=== PATIENT | female | born 1990 | race African-American/Black ===

== ENCOUNTER → 2017-01-16 | Outpatient (REF) | payer OTHER ==
[~2017-01-16] MED LIST: ADV250INH INH; ALBU17IN2 INH; EFFE150C PO; EFFE37.527 PO; LEUP375KIT IM; METH-107 PO; TRAM50TA2 PO; TRAZ50TA4 PO; ZANA2CAP PO; ZOFR20TA PO
== END ==
LOC: M LAB REF 19:31
PROVIDERS: ATTEND Physician Assistant
DX: J02.9 Acute pharyngitis, unspecified (principal)

== ENCOUNTER 2017-06-19 17:40 | Emergency (ER) | payer OTHER ==
[~2017-06-19] VITALS: Ht 162.6 cm; Wt 72.6 kg
[~2017-06-19 17:40] MED LIST changes: -METH-107 PO; +METH1TAB40 PO; +TRAZ50TA11 PO; -TRAZ50TA4 PO
[2017-06-19] MEDS ORDERED: MORPHINE 4 MG/ML 1ML SYRINGE IV PRN (18:45)
[2017-06-19] MEDS ORDERED: NS 1,000 ML IV ONE (18:45)
[2017-06-19 19:08] LABS: BASO % 0.6 % (0.0-1.0); EOS # 0.1 K/mm3 (0.0-0.50); EOS % 2.1 % (0.0-3.0); LARGE UNSTAINED CELL # 0.1 K/mm3 (0.0-0.4); LARGE UNSTAINED CELL % 2.3 % (0.0-4.0); LYMPH # 2.9 K/mm3 (1.5-6.5); LYMPH % 50.2 % (24.0-44.0); MEAN CORPUSCULAR HEMOGLOBIN 30.1 pg (27.0-33.0); MEAN CORPUSCULAR HGB CONC 33.5 g/dl (32.0-36.5); MEAN CORPUSCULAR VOLUME 89.6 fl (80.0-96.0); MONO # 0.4 K/mm3 (0.0-0.8); MONO % 6.9 % (0.0-5.0); NEUTROPHILS # 2.1 K/mm3 (1.8-7.7); NEUTROPHILS % 37.9 % (36.0-66.0); PLATELET COUNT, AUTOMATED 278 k/mm3 (150-450); RED CELL DISTRIBUTION WIDTH 13.3 % (11.5-14.5); WHITE BLOOD COUNT 5.6 K/mm3 (4.0-10.0)
[2017-06-19 19:36] LABS: ALBUMIN/GLOBULIN RATIO 1.29 (1.00-1.93); ALKALINE PHOSPHATASE 52 U/L (45-117); ALT/SGPT 44 U/L (12-78); AMYLASE 113 U/L (25-115); ANION GAP 5 MEQ/L (8-16); AST/SGOT 24 U/L (15-37); BILIRUBIN,DIRECT < 0.1 MG/DL (0.0-0.2); BILIRUBIN,TOTAL 0.2 MG/DL (0.2-1.0); BLOOD UREA NITROGEN 13 MG/DL (7-18); CALCIUM LEVEL 8.6 MG/DL (8.5-10.1); CARBON DIOXIDE LEVEL 27 MEQ/L (21-32); CHLORIDE LEVEL 103 MEQ/L (98-107); CREATININE FOR GFR 0.88 MG/DL (0.55-1.02); GLOMERULAR FILTRATION RATE > 60.0 (>60); GLUCOSE, FASTING 101 MG/DL (70-105); POTASSIUM SERUM 3.9 MEQ/L (3.5-5.1); SODIUM LEVEL 135 MEQ/L (136-145); TOTAL PROTEIN 7.1 GM/DL (6.4-8.2)
--- NOTE | 2017-06-19 19:50 | REPUSA ---
Clinical history: Right upper quadrant pain. Findings: The pancreas is limited in visualization secondary to overlying bowel gas, but appears alexandrea sly unremarkable. The liver demonstrates uniform echotexture and echogenicity, with no mass lesions. The gallbladder is unremarkable. The common bile duct measures 5 mm and is within normal limits. The right kidney measures 11.6 cm in length and is unremarkable. There is no ascites. Impression: Unremarkable ultrasound examination of the right upper quadrant.
[2017-06-19] MEDS ORDERED: MIRA3350 PO (20:52)
[2017-06-19] MEDS ORDERED: MAGNESIUM CITRATE 300 ML BTL PO ONE (21:00)
[2017-06-19 21:03] VITALS: BP 115/55
--- NOTE | 2017-06-20 08:47 | REP ---
KUB: Single view. History: Right-sided abdominal pain. Findings: Bowel gas pattern is unremarkable. Psoas margins and flank stripes are intact. No mass, organomegaly, or pathologic calcification is seen. No bony abnormality is noted. Impression: Negative KUB. Signed by Tate Zaman MD 06/20/2017 12:23 P
[2017-10-06] MEDS ORDERED: FERR1TAB8 PO (09:05)
[2017-10-06] MEDS ORDERED: ADV500INH INH (09:05)
[2017-10-06] MEDS ORDERED: KETO2CR TOP (09:05)
[2017-10-06] MEDS ORDERED: MAGN400T2 PO (09:05)
[2017-10-06] MEDS ORDERED: REFR0.1D OU (09:05)
[2017-10-06] MEDS ORDERED: FLUTISP (09:05)
== END 2017-06-19 21:15 | disposition home or self-care (01) ==
LOC: M ED 17:40
DX: K59.00 Constipation, unspecified (principal)

== ENCOUNTER → 2017-09-02 | Outpatient (CLI) | payer OTHER ==
[~2017-09-02] MED LIST changes: +ADV500INH INH; +FERR1TAB8 PO; +FLUTISP; +KETO2CR TOP; +MAGN400T2 PO; +MIRA3350 PO; +REFR0.1D OU
--- NOTE | 2017-09-02 15:13 | REP ---
PELVIC ULTRASOUND: Real-time sonographic evaluation of the pelvis performed utilizing transabdominal and endovaginal technique. Bladder measures 14.7 x 8.6 x 10.0 cm. Uterus measures 8.5 x 3.8 x 4.7 cm. Endometrial thickness is 2 mm. There is no endometrial fluid collection. Oval echogenic area centrally within the endometrial echo complex measures 1.6 x 2.1 x 1.2 cm and is suspicious for a polyp. Ovaries appear normal in size and echotexture, right ovary measuring 2.6 x 1.4 x 1.9 cm and left ovary 2.8 x 1.3 x 1.8 cm. There is blood flow seen in the right ovary with duplex Doppler evaluation, with no torsion, RI 0.48. Doppler interrogation of the left ovary cannot be performed. I see no adnexal mass or free fluid. No definite fibroid is seen. IMPRESSION: Focal echogenic area in the endometrial echo complex is suspicious for a polyp measuring 1.6 x 2.1 x 1.2 cm. No evidence of uterine fibroid. Signed by Hilario Masterson MD 09/02/2017 04:15 P
== END ==
LOC: M RAD 13:03
PROVIDERS: ATTEND Obstetrics & Gynecology
DX: N85.8 Other specified noninflammatory disorders of uterus (principal)

== ENCOUNTER 2017-10-17 07:31 | Day surgery (SDC) | payer OTHER ==
[~2017-10-17] VITALS: Ht 162.6 cm; Wt 75.2 kg
[2017-10-17] MEDS ORDERED: LR 1,000 ML IV ONE (07:45)
[2017-10-17 08:41] LABS: CONTROL LINE HCG INT CTR LINE PRESENT
[2017-10-17] MEDS ORDERED: dexameTHASONE 4 MG/ML 1ML VIAL (J1100) As Ordered ONE (09:00)
[2017-10-17] MEDS ORDERED: fentaNYL 100 MCG/2 ML INJECTION (J3010) As Ordered ONE (09:00)
[2017-10-17] MEDS ORDERED: ONDANSETRON 4MG/2ML VIAL (J2405) As Ordered ONE (09:00)
[2017-10-17] MEDS ORDERED: KETOROLAC 60 MG/2 ML VIAL (J1885) As Ordered ONE (09:00)
[2017-10-17] MEDS ORDERED: PROPOFOL 200 MG/20 ML VIAL As Ordered ONE (09:00)
[2017-10-17] MEDS ORDERED: MIDAZOLAM INJ 2 MG/2 ML VIAL (J2250) As Ordered ONE (09:00)
[2017-10-17] MEDS ORDERED: LIDOCAINE 2% INJ 100 MG/5 ML SDV (FOR ANES.) As Ordered ONE (09:00)
[2017-10-17] MEDS ORDERED: SILVER NITRATE APPLICATOR As Ordered ONE ×2 (10:07→10:48)
[2017-10-17] MEDS ORDERED: ePHEDrine SULFATE 25 MG/5 ML(5MG/ML) SYRINGE As Ordered ONE (10:48)
[2017-10-17] MEDS ORDERED: LR 1,000 ML IV SCH ×2 (11:30)
[2017-10-17] MEDS ORDERED: fentaNYL 100 MCG/2 ML INJECTION (J3010) IV PRN (11:30)
[2017-10-17] MEDS ORDERED: ONDANSETRON 4MG/2ML VIAL (J2405) IV PRN (11:30)
[2017-10-17] MEDS ORDERED: MEPERIDINE INJ 25 MG/ML VIAL (J2175) IV PRN (11:30)
[2017-10-17] MEDS ORDERED: PERCOCET 5MG/325MG TAB PO PRN (11:30)
[2017-10-17] MEDS ORDERED: CODE30TA3 PO (11:53)
[2017-10-17] MEDS ORDERED: COLA100C5 PO (11:54)
[2017-10-17 14:35] VITALS: BP 131/73
--- NOTE | 2017-10-17 17:33 | RO ---
DATE OF PROCEDURE: 10/17/2017 PREPROCEDURE DIAGNOSIS: Abnormal uterine bleeding secondary to an endometrial mass (polyp versus submucosal pedunculated fibroid). POSTPROCEDURE DIAGNOSIS: Abnormal uterine bleeding secondary to an endometrial mass (polyp versus submucosal pedunculated fibroid). PROCEDURE PERFORMED: Operative hysteroscopy with the MyoSure device. SURGEON: Raul Villanueva DO ACCOUNT SERVICES ANALYST: Evelyn Davis OMS-3 ANESTHESIA: General via laryngeal mask airway (LMA). SPECIMENS SENT TO PATHOLOGY: Morcellated endometrial mass. ESTIMATED BLOOD LOSS: 50 mL FLUIDS REPLACED: 1300 mL fluid deficit. Approximately 800 mL. DRAINS: In-and-out catheter, 100 mL urine output. COMPLICATIONS: None. PREOPERATIVE ANTIBIOTICS: None indicated. INTRAOPERATIVE FINDINGS: Hysteroscopic examination revealed an endometrial mass attached to the anterior surface of the endometrial cavity / fundus. This mass measured probably 2 cm in it's greatest dimension. It was pedunculated, nonbleeding at the time of the inspection. It was morcellated in its entirety. Before and after pictures were taken. INDICATION: The patient is a 27-year-old with a longstanding history of abnormal uterine bleeding. An in-office hysteroscopy revealed an endometrial mass and it was decided to proceed with an operative hysteroscopic procedure with the MyoSure device while under anesthesia. DESCRIPTION OF PROCEDURE: The patient was consented on the risks, benefits, indications, and alternatives of the procedure. Informed consent was obtained. She was taken to the operating room with an IV running, placed on the operating room table in the dorsal supine position. General anesthesia was administered. The airway was secured without any difficulty. She was placed in a low lithotomy position. She was prepared and draped in a normal sterile fashion. A time-out was performed per protocol. An in-and-out catheter was placed in the bladder was drained productive of 100 mL urine output. The sterile catheter was removed. A sterile speculum was placed with good visualization of the cervix. The anterior lip of the cervix was grasped with single-tooth tenaculum. The posterior lip of the cervix was also grasped with a single-tooth tenaculum. The cervix was then sequentially dilated with Erik dilators up to a #16. The MyoSure hysteroscope was placed transcervically into the intrauterine cavity with the findings noted above. The MyoSure device was brought to the level of the mass and the MyoSure device was activated. In sequential fashion, this mass was morcellated until the base of the mass was reached. The hysteroscopic inspection at the conclusion of the morcellation revealed entire removal of the mass. Both ostia were visualized and no additional masses in the uterus were noted. The device was removed. A light curettage was performed to remove any residual tissue. Minimal bleeding from the cervical os was noted. The single-tooth tenaculums were removed. The tenaculum sites were cauterized with silver nitrate. Excellent hemostasis was achieved. All instruments were removed from the vagina. Sponge, lap, needle and sponge counts were correct. The patient tolerated the entire procedure well. She was transferred the post anesthesia care unit (PACU) in good stable condition. CHACHO
== END 2017-10-17 14:44 | disposition home or self-care (01) ==
LOC: M SDC 07:31
PROVIDERS: ATTEND Obstetrics & Gynecology
DX: N93.9 Abnormal uterine and vaginal bleeding, unspecified (principal); N84.0 Polyp of corpus uteri; N85.00 Endometrial hyperplasia, unspecified; J45.909 Unspecified asthma, uncomplicated; G43.909 Migraine, unspecified, not intractable, without status migrainosus; D70.8 Other neutropenia; I95.9 Hypotension, unspecified; K21.9 Gastro-esophageal reflux disease without esophagitis; D64.9 Anemia, unspecified; D55.0 Anemia due to glucose-6-phosphate dehydrogenase [G6PD] deficiency; F41.9 Anxiety disorder, unspecified; F32.9 Major depressive disorder, single episode, unspecified; Z88.1 Allergy status to other antibiotic agents; Z88.8 Allergy status to other drugs, medicaments and biological substances; Z79.899 Other long term (current) drug therapy
CPT/HCPCS: 58558; 84703; 85014; 85018; 86850; 86900; 86901; 88305; J1100; J1885; J2250; J2405; J3010

== ENCOUNTER → 2017-11-17 | Outpatient (CLI) | payer OTHER ==
[~2017-11-17] MED LIST changes: +CODE30TA3 PO; +COLA100C5 PO
[2017-11-17 19:18] LABS: BASO % 0.8 % (0.0-1.0); EOS # 0.1 10^3/uL (0.0-0.50); EOS % 1.5 % (0.0-3.0); LYMPH # 1.7 10^3/uL (1.5-6.5); LYMPH % 43.3 % (24.0-44.0); MEAN CORPUSCULAR HEMOGLOBIN 28.2 pg (27.0-33.0); MEAN CORPUSCULAR HGB CONC 31.7 g/dl (32.0-36.5); MEAN CORPUSCULAR VOLUME 88.9 fl (80.0-96.0); MONO # 0.6 10^3/uL (0.0-0.8); MONO % 14.2 % (0.0-5.0); NEUTROPHILS # 1.6 10^3/uL (1.8-7.7); NEUTROPHILS % 40.2 % (36.0-66.0); PLATELET COUNT, AUTOMATED 296 10^3/uL (150-450); RED CELL DISTRIBUTION WIDTH 14.1 % (11.5-14.5); WHITE BLOOD COUNT 3.9 10^3/uL (4.0-10.0)
[2017-11-17 19:47] LABS: ANION GAP 8 MEQ/L (8-16); BLOOD UREA NITROGEN 22 MG/DL (7-18); CALCIUM LEVEL 8.6 MG/DL (8.5-10.1); CARBON DIOXIDE LEVEL 27 MEQ/L (21-32); CHLORIDE LEVEL 110 MEQ/L (98-107); FREE T4 0.92 NG/DL (0.76-1.46); GLOMERULAR FILTRATION RATE > 60.0 (>60); GLUCOSE, FASTING 70 MG/DL (70-105); POTASSIUM SERUM 4.6 MEQ/L (3.5-5.1); SODIUM LEVEL 145 MEQ/L (136-145)
== END ==
LOC: M SMT 14:24
PROVIDERS: ATTEND Physician Assistant
DX: R63.5 Abnormal weight gain (principal)

== ENCOUNTER 2017-12-01 22:07 | Emergency (ER) | payer OTHER ==
[2017-12-02] MEDS: AMOXICILLIN 500 MG CAP PO (00:38)
== END 2017-12-02 00:43 | disposition home or self-care (01) ==
LOC: M ED 22:07
DX: H66.92 Otitis media, unspecified, left ear (principal); F41.9 Anxiety disorder, unspecified; F33.9 Major depressive disorder, recurrent, unspecified; D55.0 Anemia due to glucose-6-phosphate dehydrogenase [G6PD] deficiency; Z79.899 Other long term (current) drug therapy; Z79.51 Long term (current) use of inhaled steroids; Z88.1 Allergy status to other antibiotic agents; Z88.8 Allergy status to other drugs, medicaments and biological substances
CPT/HCPCS: 99283

== ENCOUNTER → 2017-12-16 | Outpatient (CLI) | payer OTHER | LOC: M RAD 15:07 | DX: R10.32 Left lower quadrant pain (principal) | CPT/HCPCS: 74019 ==

== ENCOUNTER 2018-06-26 18:38 | Emergency (ER) | payer OTHER ==
[2018-06-27] MEDS: NS 1,000 ML IV (01:00)
[2018-06-27 01:30] LABS: BASO # 0.1 10^3/uL (0.0-0.2); EOS # 0.1 10^3/uL (0.0-0.50); EOS % 1.9 % (0.0-3.0); HEMATOCRIT 37.2 % (36.0-47.0); HEMOGLOBIN 12.3 g/dl (12.0-15.5); IMMATURE GRANULOCYTE % 0.4 % (0-3.0); LYMPH # 2.7 10^3/uL (1.5-6.5); LYMPH % 52.7 % (24.0-44.0); MEAN CORPUSCULAR HEMOGLOBIN 28.9 pg (27.0-33.0); MEAN CORPUSCULAR HGB CONC 33.1 g/dl (32.0-36.5); MEAN CORPUSCULAR VOLUME 87.5 fl (80.0-96.0); MONO # 0.5 10^3/uL (0.0-0.8); MONO % 9.9 % (0.0-5.0); NEUTROPHILS # 1.8 10^3/uL (1.8-7.7); NEUTROPHILS % 34.1 % (36.0-66.0); PLATELET COUNT, AUTOMATED 263 10^3/uL (150-450); RED BLOOD COUNT 4.25 10^6/uL (4.00-5.40); RED CELL DISTRIBUTION WIDTH 13.2 % (11.5-14.5); WHITE BLOOD COUNT 5.2 10^3/uL (4.0-10.0)
[2018-06-27 01:34] LABS: APPEARANCE, URINE CLEAR (CLEAR); BACTERIA, URINE AUTO NEGATIVE (NEGATIVE); BILIRUBIN, URINE AUTO NEGATIVE (NEGATIVE); BLOOD, URINE BLOOD NEGATIVE (NEGATIVE); COLOR, URINE YELLOW (YELLOW); GLUCOSE, URINE (UA) AUTO NEGATIVE (NEGATIVE); KETONE, URINE AUTO 2+ mg/dL (NEGATIVE); LEUKOCYTE ESTERASE, URINE AUTO NEGATIVE (NEGATIVE); MUCUS, URINE SMALL (NEGATIVE); NITRITE, URINE AUTO NEGATIVE (NEGATIVE); PROTEIN, URINE AUTO NEGATIVE (NEGATIVE); RBC, URINE AUTO 2 /HPF (0-3); SPECIFIC GRAVITY URINE AUTO 1.025 (1.002-1.035); SQUAMOUS EPITHELIAL CELL UR AU 1 /HPF (0-6); WBC, URINE AUTO 1 /HPF (0-3)
[2018-06-27 01:52] LABS: CONTROL LINE HCG INT CTR LINE PRESENT; HCG, SERUM QUALITATIVE NEGATIVE (NEGATIVE)
[2018-06-27 01:53] LABS: ALBUMIN 3.9 GM/DL (3.2-5.2); ALBUMIN/GLOBULIN RATIO 1.15 (1.00-1.93); ALKALINE PHOSPHATASE 45 U/L (45-117); ALT/SGPT 23 U/L (12-78); ANION GAP 4 MEQ/L (8-16); AST/SGOT 22 U/L (7-37); BILIRUBIN,DIRECT < 0.1 MG/DL (0.0-0.2); BILIRUBIN,TOTAL 0.5 MG/DL (0.2-1.0); BLOOD UREA NITROGEN 17 MG/DL (7-18); CALCIUM LEVEL 8.7 MG/DL (8.5-10.1); CARBON DIOXIDE LEVEL 31 MEQ/L (21-32); CHLORIDE LEVEL 104 MEQ/L (98-107); CREATININE FOR GFR 0.77 MG/DL (0.55-1.30); GLOMERULAR FILTRATION RATE > 60.0 (>60); GLUCOSE, FASTING 82 MG/DL (70-100); POTASSIUM SERUM 4.3 MEQ/L (3.5-5.1); SODIUM LEVEL 139 MEQ/L (136-145); TOTAL PROTEIN 7.3 GM/DL (6.4-8.2)
[2018-06-27] MEDS ORDERED: METAL LOCK LOOP XX (06:03)
== END 2018-06-27 04:06 | disposition home or self-care (01) ==
LOC: M ED 06-27 04:06
DX: E88.89 Other specified metabolic disorders (principal); E86.0 Dehydration; F32.9 Major depressive disorder, single episode, unspecified; J45.909 Unspecified asthma, uncomplicated; K21.9 Gastro-esophageal reflux disease without esophagitis; K59.09 Other constipation; Z79.899 Other long term (current) drug therapy; Z88.1 Allergy status to other antibiotic agents
CPT/HCPCS: 70450

== ENCOUNTER → 2018-11-13 | Outpatient (CLI) | payer OTHER ==
[2018-11-13 17:31] LABS: BASO % 0.6 % (0.0-1.0); EOS % 0.8 % (0.0-3.0); HEMATOCRIT 39.5 % (36.0-47.0); HEMOGLOBIN 12.9 g/dl (12.0-15.5); IMMATURE GRANULOCYTE % 0.2 % (0-3.0); LYMPH # 2.1 10^3/uL (1.5-6.5); LYMPH % 40.2 % (24.0-44.0); MEAN CORPUSCULAR HEMOGLOBIN 28.8 pg (27.0-33.0); MEAN CORPUSCULAR HGB CONC 32.7 g/dl (32.0-36.5); MEAN CORPUSCULAR VOLUME 88.2 fl (80.0-96.0); MONO # 0.5 10^3/uL (0.0-0.8); MONO % 10.2 % (0.0-5.0); NEUTROPHILS # 2.5 10^3/uL (1.8-7.7); PLATELET COUNT, AUTOMATED 316 10^3/uL (150-450); RED BLOOD COUNT 4.48 10^6/uL (4.00-5.40); RED CELL DISTRIBUTION WIDTH 13.4 % (11.5-14.5); WHITE BLOOD COUNT 5.2 10^3/uL (4.0-10.0)
[2018-11-13 18:08] LABS: ALBUMIN 4.1 GM/DL (3.2-5.2); ALBUMIN/GLOBULIN RATIO 1.14 (1.00-1.93); ALKALINE PHOSPHATASE 46 U/L (45-117); ALT/SGPT 46 U/L (12-78); ANION GAP 7 MEQ/L (8-16); AST/SGOT 20 U/L (7-37); BILIRUBIN,TOTAL 0.3 MG/DL (0.2-1.0); BLOOD UREA NITROGEN 17 MG/DL (7-18); CARBON DIOXIDE LEVEL 29 MEQ/L (21-32); CHLORIDE LEVEL 103 MEQ/L (98-107); CREATININE FOR GFR 0.83 MG/DL (0.55-1.30); FREE T4 0.92 NG/DL (0.76-1.46); GLOMERULAR FILTRATION RATE > 60.0 (>60); GLUCOSE, FASTING 82 MG/DL (70-100); POTASSIUM SERUM 4.3 MEQ/L (3.5-5.1); SODIUM LEVEL 139 MEQ/L (136-145); THYROID STIMULATING HORMONE 0.999 uIU/ML (0.358-3.740); TOTAL PROTEIN 7.7 GM/DL (6.4-8.2)
== END ==
LOC: M SMT 14:39
DX: R63.5 Abnormal weight gain (principal); F33.1 Major depressive disorder, recurrent, moderate
CPT/HCPCS: 84443

== ENCOUNTER → 2019-01-25 | Outpatient (CLI) | payer OTHER ==
[~2019-01-25] MED LIST changes: +AMOX875T PO; -EFFE150C PO; +EFFE150C2 PO; +EFFE37.5 PO; -EFFE37.527 PO; +NORA0.35 PO; +SYMB16INH INH; +TRAZ-160 PO; -TRAZ50TA11 PO; -ZOFR20TA PO; +ZOFR4TAB16 PO
[2019-01-25 17:15] LABS: IMMUNOGLOBULIN E 21.9 IU/ML (<100)
== END ==
LOC: M SMT 10:51
PROVIDERS: ATTEND Allergy & Immunology Allergy
DX: R10.13 Epigastric pain (principal); R19.7 Diarrhea, unspecified

== ENCOUNTER 2019-04-25 21:59 | Emergency (ER) | payer OTHER ==
[~2019-04-25] VITALS: Ht 162.6 cm; Wt 76.4 kg
[~2019-04-25 21:59] MED LIST changes: +ACET300T47 PO; -CODE30TA3 PO; -TRAZ-160 PO; +TRAZ-252 PO
[2019-04-26] MEDS ORDERED: diphenhydrAMINE INJ 50MG/ML VIAL (J1200) IV STA (01:05)
[2019-04-26] MEDS ORDERED: KETOROLAC 30 MG/ML VIAL (J1885) IV ONE (01:15)
[2019-04-26] MEDS ORDERED: NS 1,000 ML IV ONE (01:15)
[2019-04-26] MEDS ORDERED: METOCLOPRAMIDE INJ 10MG/2ML VIAL (J2765) IV ONE (01:15)
[2019-04-26 02:25] VITALS: BP 115/64
== END 2019-04-26 02:32 | disposition home or self-care (01) ==
LOC: M ED 21:59
DX: J45.909 Unspecified asthma, uncomplicated (principal); Z79.899 Other long term (current) drug therapy; Z88.1 Allergy status to other antibiotic agents; Z88.8 Allergy status to other drugs, medicaments and biological substances
CPT/HCPCS: 96361; 96374; 96375; 99284; J1200; J1885; J2765

== ENCOUNTER → 2019-05-07 | Outpatient (CLI) | payer OTHER ==
--- NOTE | 2019-05-11 07:23 | SLEEPCENT ---
DATE OF PROCEDURE: 05/11/2019 Nocturnal polysomnography was performed for evaluation of sleep physiology in this patient with a history of excessive somnolence and nonrestorative sleep. 8 hours and 55 minutes of data were reviewed. There were 490 minutes of sleep identified. Sleep latency was normal at 10.5 minutes. REM sleep was delayed at 449 minutes. Sleep architecture showed poor progression with one period of REM late in the study and several micro arousals. Overall sleep efficiency was 93%. The electrocardiogram showed sinus rhythm with an average heart rate of 80 beats per minute. Rate ranged 60-100 EEG showed alpha intrusion into non REM stages. No focal events were identified. There were only nine respiratory events identified of 10 seconds in duration or greater for an apnea-hypopnea index well within normal limits at 1.1. Snoring was noted but arousals from respiratory events were infrequent 0.6. No significant oxygen desaturations were seen below 90%. There was some limb activity noted however and limb movement arousal index was 7.3. IMPRESSION: Mild periodic limb movement disorder (G47.61). Limb movement arousal index 7.3. RECOMMENDATIONS Interventions to reduce the frequency arousal from limb activity may improve the quality of this patient.
== END ==
LOC: M SLEEP 19:44
PROVIDERS: ATTEND Nurse Practitioner Family
DX: R06.83 Snoring (principal)

== ENCOUNTER → 2019-07-21 | Outpatient (REF) ==
--- NOTE | 2019-07-21 13:08 | REP ---
REASON: Disability. PRIORS: None. FINDINGS: No acute fracture or destructive osseous lesion. The mortise is intact. Electronically Signed by Henry Iraheta DO 07/21/2019 02:02 P
== END ==
LOC: M SMT 10:53
PROVIDERS: ATTEND Internal Medicine
DX: Z02.71 Encounter for disability determination (principal)

== ENCOUNTER 2020-12-07 11:43 | Emergency (ER) | payer OTHER ==
[~2020-12-07] VITALS: Ht 162.6 cm; Wt 87.2 kg
[~2020-12-07 11:43] MED LIST changes: +METH-1164 PO; -METH1TAB40 PO
[2020-12-07] MEDS ORDERED: HYDR-3363 PO ×2 (12:38→12:39)
[2020-12-07] MEDS ORDERED: BENE1POW5 PO ×2 (12:38→12:39)
[2020-12-07] MEDS ORDERED: vitamin D PO ×2 (12:38→12:39)
[2020-12-07] MEDS ORDERED: CETI-24 PO ×2 (12:38→12:39)
[2020-12-07] MEDS ORDERED: RIBO400T PO ×2 (12:38→12:39)
[2020-12-07 13:45] LABS: BASO % 0.7 % (0.0-1.0); EOS # 0.1 10^3/uL (0.0-0.5); EOS % 1.3 % (0.0-3.0); HEMATOCRIT 39.4 % (36.0-47.0); HEMOGLOBIN 12.5 g/dl (12.0-15.5); LYMPH # 2.1 10^3/uL (1.5-5.0); LYMPH % 46.9 % (24.0-44.0); MEAN CORPUSCULAR HEMOGLOBIN 28.3 pg (27.0-33.0); MEAN CORPUSCULAR HGB CONC 31.7 g/dl (32.0-36.5); MEAN CORPUSCULAR VOLUME 89.1 fl (80.0-96.0); MONO # 0.5 10^3/uL (0.0-0.8); MONO % 10.9 % (0.0-5.0); NEUTROPHILS # 1.8 10^3/uL (1.5-8.5); PLATELET COUNT, AUTOMATED 288 10^3/uL (150-450); RED BLOOD COUNT 4.42 10^6/uL (4.00-5.40); WHITE BLOOD COUNT 4.5 10^3/uL (4.0-10.0)
[2020-12-07] MEDS ORDERED: KETOROLAC 30 MG/ML 1ML VIAL IV ONE (14:00)
--- NOTE | 2020-12-07 14:20 | REP ---
INDICATION: Abdominal Pain. COMPARISON: 12/16/2017. TECHNIQUE: Supine and erect views of the abdomen and pelvis, frontal view of the chest. FINDINGS: No evidence of free intraperitoneal air and no radiographic evidence of bowel obstruction. No dilated bowel loops are seen. There is mild scattered fecal material throughout the colon. A tiny phlebolith is seen inferiorly in the pelvis. No other definite abnormal calcifications are seen. There is [id number] curvature of the thoracolumbar spine convex to the left. No infiltrate is seen in either lung. The heart mediastinum are unremarkable. IMPRESSION: Negative abdominal series. <Electronically signed by Hilario Masterson > 12/07/20 [id number]
--- NOTE | 2020-12-07 14:26 | REP ---
INDICATION: RUQ pain. COMPARISON: 06/19/2017. TECHNIQUE: Real-time sonographic evaluation of right upper quadrant performed. FINDINGS: There is a 1 cm gallstone in the gallbladder. There is no gallbladder wall thickening or pericholecystic fluid.. There is no intrahepatic or extrahepatic biliary dilatation, common bile duct measures 5 mm in maximum diameter. The liver demonstrates homogeneous echotexture with no gross mass. The pancreas demonstrates homogeneous echotexture with no gross mass. The right kidney demonstrates no hydronephrosis, with a normal size of 10.5 cm in length. Pancreatic tail is not well seen due to overlying bowel gas.No free fluid is seen. IMPRESSION: There is a 1 cm gallstone in the gallbladder without gallbladder wall thickening, pericholecystic fluid or biliary dilatation. <Electronically signed by Hilario Masterson > 12/07/20 [id number]
[2020-12-07 14:27] LABS: ALBUMIN 4.1 GM/DL (3.2-5.2); ALT/SGPT 27 U/L (12-78); BILIRUBIN,DIRECT < 0.1 MG/DL (0.0-0.2); BILIRUBIN,TOTAL 0.3 MG/DL (0.2-1.0); BLOOD UREA NITROGEN 15 MG/DL (7-18); CALCIUM LEVEL 8.9 MG/DL (8.5-10.1); CARBON DIOXIDE LEVEL 29 MEQ/L (21-32); CHLORIDE LEVEL 107 MEQ/L (98-107); CK-MB VALUE MASS < 1.0 NG/ML (<3.6); CPK CREATINE PHOSPHOKINASE 116 U/L (26-192); CREATININE FOR GFR 0.98 MG/DL (0.55-1.30); GLOMERULAR FILTRATION RATE > 60.0 (>60); GLUCOSE, FASTING 89 MG/DL (70-100); LIPASE 93 U/L (73-393); MB/CK RELATIVE INDEX 0.86 (< OR =4); POTASSIUM SERUM 4.3 MEQ/L (3.5-5.1); SODIUM LEVEL 139 MEQ/L (136-145); TOTAL PROTEIN 7.3 GM/DL (6.4-8.2); TROPONIN I < 0.02 NG/ML (< 0.10)
[2020-12-07 15:27] VITALS: BP 137/74
--- NOTE | 2020-12-08 21:29 | ECGEPIP ---
[facility] - ED Test Date: 2020-12-07 Pat Name: NAOMIE LOONEY Department: Room: - Gender: Female Heat Treating Furnace Tender: HERNANDEZ : 1990 Requested By: JOSELIN Silverman PA-C Order Number: [id number] Reading MD: Sree Cheung Measurements Intervals [place] Rate: 77 P: 25 DC: 148 QRS: 52 QRSD: 97 T: 36 QT: 381 QTc: 431 Interpretive Statements SINUS RHYTHM NSTTW ABNORMALITY(S) SIMILAR TO 01/19/16 Electronically Signed on 12-08-2020 21:28:45 EST by Sree Cheung
== END 2020-12-07 15:31 | disposition home or self-care (01) ==
LOC: M ED 11:43
DX: K80.70 Calculus of gallbladder and bile duct without cholecystitis without obstruction (principal); R10.11 Right upper quadrant pain; K21.9 Gastro-esophageal reflux disease without esophagitis; J45.909 Unspecified asthma, uncomplicated; D55.0 Anemia due to glucose-6-phosphate dehydrogenase [G6PD] deficiency; F41.9 Anxiety disorder, unspecified; F32.9 Major depressive disorder, single episode, unspecified; Z87.42 Personal history of other diseases of the female genital tract; Z88.1 Allergy status to other antibiotic agents; Z88.8 Allergy status to other drugs, medicaments and biological substances; Z79.899 Other long term (current) drug therapy; Z79.51 Long term (current) use of inhaled steroids
CPT/HCPCS: 74021; 76705; 80048; 80076; 82550; 82553; 83690; 84484; 84702; 85025; 93005; 96374; 99284; J1885

== ENCOUNTER 2021-02-02 11:02 | Day surgery (SDC) | payer OTHER ==
[~2021-02-02] VITALS: Ht 162.6 cm; Wt 85.7 kg
[~2021-02-02 11:02] MED LIST changes: +BENE1POW5 PO; +CETI-24 PO; +CHOL10007 PO; +DULC5TAB PO; +DULO1CAP5 PO; +HYDR-3363 PO; +JOLETAB PO; +LIDOCAINE 2% 100MG/5ML SDV (FOR ANES.) As Ordered ONE; +LORA-622 PO; +LR 1,000 ML IV ONE; +MELA3TAB7 PO; +MIDAZOLAM INJ 2MG/2ML VIAL (J2250 PER 1MG) As Ordered ONE; +NEUR300C PO; +PROAAER10 INH; +RIBO400T PO; +ROCURONIUM BROMIDE 50 MG/5 ML VIAL As Ordered ONE; +VITA100T98 PO; +fentaNYL 250 MCG/5 ML INJECTION (J3010) As Ordered ONE; +propofoL 200 MG/20 ML VIAL As Ordered ONE; +vitamin D PO
[2021-02-02] MEDS ORDERED: METOCLOPRAMIDE INJ 10MG/2ML VIAL (J2765 PER 1) As Ordered ONE (11:37)
[2021-02-02] MEDS ORDERED: dexameTHASONE 4 MG/ML 1ML VIAL (J1100 PER 1MG) As Ordered ONE (11:38)
[2021-02-02] MEDS ORDERED: ONDANSETRON 4MG/2ML VIAL As Ordered ONE (11:38)
[2021-02-02] MEDS ORDERED: KETOROLAC 60MG 2ML VIAL As Ordered ONE (11:38)
[2021-02-02] MEDS ORDERED: ACETAMINOPHEN 1000MG 100ML IV BTL (OFIRMEV) (J0131 PER 10MG) As Ordered ONE (11:40)
[2021-02-02] MEDS ORDERED: BUPIVACAINE/EPIN 0.25% 30 ML VIAL As Ordered ONE (12:06)
[2021-02-02] MEDS ORDERED: DESFLURANE 240 ML INHALANT As Ordered ONE (12:27)
[2021-02-02] MEDS ORDERED: SUGAMMADEX SODIUM 500 MG/5 ML VIAL (BRIDION) As Ordered ONE (12:53)
[2021-02-02] MEDS ORDERED: SUCCINYLCHOLINE 100 MG/5 ML SYRINGE (J0330) As Ordered ONE ×2 (13:29→13:40)
[2021-02-02] MEDS ORDERED: HYDROMORPHONE HCL 0.5 MG/ 0.5 ML SYRINGE (J1170 PER 1) As Ordered ONE ×2 (13:38→13:48)
[2021-02-02] MEDS: HYDROMORPHONE HCL 0.5 MG/ 0.5 ML SYRINGE (J1170 PER 1) IV PRN ×3 (13:39→14:01)
[2021-02-02] MEDS ORDERED: fentaNYL 100 MCG/2 ML INJECTION (J3010) IV PRN (14:00)
[2021-02-02] MEDS ORDERED: METOCLOPRAMIDE INJ 10MG/2ML VIAL (J2765 PER 1) IV PRN (14:00)
[2021-02-02] MEDS ORDERED: LR 1,000 ML IV SCH (14:00)
[2021-02-02] MEDS ORDERED: ONDANSETRON 4MG/2ML VIAL IV PRN (14:00)
[2021-02-02] MEDS ORDERED: oxyCODONE 5MG TAB PO PRN (14:00)
--- NOTE | 2021-02-02 14:00 | RO ---
OPERATIVE NOTE DATE OF OPERATION: 02/02/2021 PREOPERATIVE DIAGNOSIS: Symptomatic cholelithiasis. POSTOPERATIVE DIAGNOSIS: Symptomatic cholelithiasis. PROCEDURE: Robotic cholecystectomy. SURGEON: Hilario Woods DO HEEL LINING PASTER: Kirsty Crawford ANESTHESIA: General. EBL: 5. COMPLICATIONS: None. INDICATIONS FOR PROCEDURE: The patient is a 30-year-old female who presents with right upper quadrant pain, symptomatic cholelithiasis. Recommendation was to proceed with robotic cholecystectomy. Risks and benefits of the procedure not limited to but including bleeding, infection, hernia formation, damage to surrounding structures, need for further surgery were discussed in detail with the patient, informed consent was obtained, procedure was planned. DESCRIPTION OF PROCEDURE: The patient was brought back to operating room 7, after sufficient sedation the abdomen was sterilely prepped and draped. Time out was done to confirm proper patient, proper procedure. Following that an 8 mm incision was made in the left upper quadrant, Veress needle was inserted and abdomen was insufflated to 15 mmHg. Veress needle was then removed and 8 mm Optiview port was used to gain access to the abdomen. Once the abdomen was entered three more ports were placed across the right upper quadrant. The fundus of the gallbladder was elevated up toward the right shoulder. The cystic duct and cystic artery were carefully dissected free using combination of blunt and sharp dissection. Once they were both clearly identified they were both doubly clipped and cut. Gallbladder was then dissected free from the gallbladder fossa, placed inside 5 mm Endo Catch bag and brought out through the right upper quadrant port site. Once the gallbladder was removed the right upper quadrant was examined for hemostasis. The ports were removed. Abdomen was desufflated. Skin incisions were closed with 4-0 Vicryl subcuticular sutures. The abdomen was cleaned and dried; Steri-Strips and 4 x 4 tapes were applied. This ended the procedure.
[2021-02-02 16:24] VITALS: BP 129/84
[2021-02-02 17:24] VITALS: BP 130/84
[2021-02-02] MEDS: NORCO, ANEXSIA 5/325MG TABLET (HYDROcodone/ACETAMINOPHEN) PO PRN (17:26)
[2021-02-02 18:24] VITALS: BP 123/82
[2021-02-02 20:40] VITALS: BP 124/78
[2021-02-03 05:07] VITALS: BP 123/78
[2021-02-03] MEDS: NORCO, ANEXSIA 5/325MG TABLET (HYDROcodone/ACETAMINOPHEN) PO PRN (08:23)
== END 2021-02-03 10:45 | disposition home or self-care (01) ==
LOC: M SDC 11:02 → M MS5PR 16:10 → M SDC 02-03 10:45
PROVIDERS: ATTEND Surgery
DX: K80.10 Calculus of gallbladder with chronic cholecystitis without obstruction (principal); K21.9 Gastro-esophageal reflux disease without esophagitis; D64.9 Anemia, unspecified; K59.00 Constipation, unspecified; J45.909 Unspecified asthma, uncomplicated; Z79.899 Other long term (current) drug therapy; Z88.2 Allergy status to sulfonamides; Z88.1 Allergy status to other antibiotic agents; Z88.8 Allergy status to other drugs, medicaments and biological substances
CPT/HCPCS: 47562; 81025; 88304; J0131; J0330; J1100; J1170; J1885; J2250; J2405; J2765; J3010; S2900

== ENCOUNTER 2021-02-26 20:32 | Emergency (ER) | payer OTHER ==
[~2021-02-26] VITALS: Ht 162.6 cm; Wt 85.2 kg
[~2021-02-26 20:32] MED LIST changes: -LIDOCAINE 2% 100MG/5ML SDV (FOR ANES.) As Ordered ONE; -LR 1,000 ML IV ONE; -MIDAZOLAM INJ 2MG/2ML VIAL (J2250 PER 1MG) As Ordered ONE; -ROCURONIUM BROMIDE 50 MG/5 ML VIAL As Ordered ONE; -fentaNYL 250 MCG/5 ML INJECTION (J3010) As Ordered ONE; -propofoL 200 MG/20 ML VIAL As Ordered ONE
--- NOTE | 2021-02-26 21:57 | REPVR ---
PROCEDURE INFORMATION: Exam: XR Right Foot Exam date and time: 02/26/2021 8:58 PM Age: 30 years old Clinical indication: Pain; Foot; Right; Additional info: Injury TECHNIQUE: Imaging protocol: XR Right foot. Views: 3 or more views. COMPARISON: CR Foot, complete 09/23/2016 7:44 AM FINDINGS: Bones/joints: Normal. Soft tissues: Normal. IMPRESSION: No acute findings. Electronically signed by: Carlos Remy On 02/26/2021 21:57:15 PM
[2021-02-26] MEDS ORDERED: LIDOCAINE 4% CREAM 5GM (LMX4) TOP ONE (22:05)
[2021-02-26] MEDS ORDERED: ANEC4CRE3 TOP (22:05)
[2021-02-26 22:17] VITALS: BP 129/77
== END 2021-02-26 22:20 | disposition home or self-care (01) ==
LOC: M ED 20:32
DX: M79.671 Pain in right foot (principal); R26.2 Difficulty in walking, not elsewhere classified; D55.0 Anemia due to glucose-6-phosphate dehydrogenase [G6PD] deficiency; R51.9 Headache, unspecified; J45.909 Unspecified asthma, uncomplicated; K59.00 Constipation, unspecified; Z88.2 Allergy status to sulfonamides; Z88.1 Allergy status to other antibiotic agents; Z88.8 Allergy status to other drugs, medicaments and biological substances; Z79.899 Other long term (current) drug therapy; Z79.51 Long term (current) use of inhaled steroids; Z79.3 Long term (current) use of hormonal contraceptives

== ENCOUNTER → 2021-08-10 | Outpatient (CLI) | payer OTHER ==
[~2021-08-10] MED LIST changes: +ANEC4CRE3 TOP
--- NOTE | 2021-08-10 13:56 | REP ---
INDICATION: PAIN. COMPARISON: None. TECHNIQUE: Four views bilateral FINDINGS: The bilateral joint spaces are symmetric and relatively well maintained. There is no evidence of acute fracture or destructive osseous lesion seen bilaterally. IMPRESSION: Within normal limits bilateral <Electronically signed by Henry Iraheta > 08/10/21 [id number]
== END ==
LOC: M WUC 13:40
PROVIDERS: ATTEND Physician Assistant
DX: M79.672 Pain in left foot (principal); M79.671 Pain in right foot

== ENCOUNTER → 2021-11-27 | Outpatient (CLI) | payer OTHER | LOC: M WHC 12:24 | PROVIDERS: ATTEND Obstetrics & Gynecology | DX: N93.9 Abnormal uterine and vaginal bleeding, unspecified (principal) ==

== ENCOUNTER → 2022-01-02 | Outpatient (CLI) | payer OTHER | LOC: M LABSMTC 11:18 | PROVIDERS: ATTEND Anesthesiology | DX: Z01.818 Encounter for other preprocedural examination (principal); Z11.52 Encounter for screening for COVID-19 ==

== ENCOUNTER 2022-01-07 06:05 | Day surgery (SDC) | payer OTHER ==
[~2022-01-07] VITALS: Ht 162.6 cm; Wt 86.1 kg
[~2022-01-07 06:05] MED LIST changes: +LIDOCAINE 1% MDV 20ML VIAL SQ PRN; +LR 1,000 ML IV ONE
[2022-01-07 06:54] LABS: HEMATOCRIT 37.1 % (36.0-47.0); HEMOGLOBIN 12.2 g/dl (12.0-15.5); MEAN CORPUSCULAR HEMOGLOBIN 28.6 pg (27.0-33.0); MEAN CORPUSCULAR HGB CONC 32.9 g/dl (32.0-36.5); MEAN CORPUSCULAR VOLUME 87.1 fl (80.0-96.0); PLATELET COUNT, AUTOMATED 330 10^3/uL (150-450); RED BLOOD COUNT 4.26 10^6/uL (4.00-5.40); WHITE BLOOD COUNT 3.9 10^3/uL (4.0-10.0)
[2022-01-07] MEDS ORDERED: SILVER NITRATE APPLICATOR As Ordered ONE (07:10)
[2022-01-07] MEDS ORDERED: propofoL 200 MG/20 ML VIAL As Ordered ONE (07:14)
[2022-01-07] MEDS ORDERED: dexameTHASONE 4 MG/ML 1ML VIAL (J1100 PER 1MG) As Ordered ONE (07:15)
[2022-01-07] MEDS ORDERED: LIDOCAINE 2% 100MG/5ML SDV (FOR ANES.) As Ordered ONE (07:15)
[2022-01-07] MEDS ORDERED: fentaNYL 100 MCG/2 ML INJECTION As Ordered ONE (07:15)
[2022-01-07] MEDS ORDERED: MIDAZOLAM INJ 2MG/2ML VIAL (J2250 PER 1MG) As Ordered ONE (07:15)
[2022-01-07] MEDS ORDERED: ONDANSETRON 4MG/2ML VIAL As Ordered ONE (07:16)
[2022-01-07] MEDS ORDERED: KETOROLAC 60MG 2ML VIAL As Ordered ONE (08:11)
[2022-01-07] MEDS ORDERED: ACETAMINOPHEN 1000MG 100ML IV BTL (OFIRMEV) (J0131 PER 10MG) As Ordered ONE (08:12)
[2022-01-07] MEDS ORDERED: fentaNYL 100 MCG/2 ML INJECTION IV PRN (08:40)
[2022-01-07] MEDS ORDERED: oxyCODONE 5MG TAB PO PRN (08:40)
[2022-01-07] MEDS ORDERED: LR 1,000 ML IV SCH (08:40)
[2022-01-07] MEDS ORDERED: ONDANSETRON 4MG/2ML VIAL IV PRN (08:40)
[2022-01-07 10:02] VITALS: BP 122/74
== END 2022-01-07 10:06 | disposition home or self-care (01) ==
LOC: M SDC 06:05
PROVIDERS: ATTEND Obstetrics & Gynecology
DX: D25.1 Intramural leiomyoma of uterus (principal); N93.9 Abnormal uterine and vaginal bleeding, unspecified; I95.9 Hypotension, unspecified; E61.8 Deficiency of other specified nutrient elements; G47.30 Sleep apnea, unspecified; T88.59XD Other complications of anesthesia, subsequent encounter; Z88.1 Allergy status to other antibiotic agents; Z88.2 Allergy status to sulfonamides; Z79.899 Other long term (current) drug therapy
CPT/HCPCS: 36415; 58558; 81025; 85027; 86850; 86900; 86901; 88305; J0131; J1100; J1885; J2250; J2405; J3010

== ENCOUNTER → 2022-11-18 | Outpatient (CLI) | payer OTHER ==
[~2022-11-18] MED LIST changes: -LIDOCAINE 1% MDV 20ML VIAL SQ PRN; -LR 1,000 ML IV ONE
[2022-11-18 12:13] LABS: MAGNESIUM LEVEL 1.9 MG/DL (1.8-2.4)
[2022-11-18 12:15] LABS: CALCIUM LEVEL 8.9 MG/DL (8.5-10.1); PTH INTACT 77.2 PG/ML (18.5-88.0)
[2022-11-18 12:17] LABS: TOTAL 25(OH) VITAMIN D 65.6 NG/ML (20.0-100.0)
== END ==
LOC: M LAB 10:59
PROVIDERS: ATTEND Nurse Practitioner Family
DX: N25.81 Secondary hyperparathyroidism of renal origin (principal)

== ENCOUNTER → 2023-03-18 | Outpatient (CLI) | payer OTHER ==
[~2023-03-18] MED LIST changes: +FLUT50SP17; -FLUTISP
== END ==
LOC: M RAD 12:05
PROVIDERS: ATTEND Nurse Practitioner Family
DX: N94.6 Dysmenorrhea, unspecified (principal)

== ENCOUNTER → 2023-04-03 | Outpatient (CLI) | payer OTHER ==
[2023-04-03 12:42] LABS: CALCIUM LEVEL 9.5 MG/DL (8.5-10.1)
== END ==
LOC: M LAB 11:33
PROVIDERS: ATTEND Nurse Practitioner Family
DX: E21.3 Hyperparathyroidism, unspecified (principal)

== ENCOUNTER → 2023-07-02 | Outpatient (REF) | payer OTHER | LOC: M SFHCWAGY 17:21 | PROVIDERS: ATTEND Obstetrics & Gynecology | DX: Z12.4 Encounter for screening for malignant neoplasm of cervix (principal) | CPT/HCPCS: 87624; G0123 ==

== ENCOUNTER → 2023-10-01 | Outpatient (CLI) | payer OTHER ==
[2023-10-01 13:43] LABS: CALCIUM LEVEL 9.1 MG/DL (8.5-10.1)
[2023-10-01 13:44] LABS: PTH INTACT 36.1 PG/ML (18.5-88.0)
[2023-10-01 13:48] LABS: TOTAL 25(OH) VITAMIN D 28.2 NG/ML (20.0-100.0)
== END ==
LOC: M LAB 12:17
PROVIDERS: ATTEND Internal Medicine
DX: E21.3 Hyperparathyroidism, unspecified (principal)

== ENCOUNTER 2023-11-12 06:21 | Observation (INO) | payer OTHER ==
[~2023-11-12] VITALS: Ht 162.6 cm; Wt 92.0 kg
[2023-11-12] VITALS (8 sets, daily range): BP systolic 101–140; BP diastolic 50–80; TEMP 96.8–97.9; O2SAT 95–100
[~2023-11-12 06:21] MED LIST changes: +ALBU6.7H6 INH; +ALLI60CA2 PO; -EFFE150C2 PO; +EFFE150C3 PO; -EFFE37.5 PO; +EFFE37.52 PO; +FLON1SPR; -FLUT50SP17; +FLUTISP; +MULT-90 PO
[2023-11-12] MEDS ORDERED: LR 1,000 ML IV SCH (06:25)
[2023-11-12] MEDS ORDERED: INSULIN LISPRO (NovoLOG) PER UNIT SC PRN (06:25)
[2023-11-12] MEDS ORDERED: GLUCOSE 4GM CHEW TABLET PO PRN (06:25)
[2023-11-12] MEDS ORDERED: DEXTROSE 50% 50ML SYRINGE IV PRN (06:25)
[2023-11-12] MEDS ORDERED: GLUCAGON INJ 1MG VIAL SC PRN (06:25)
[2023-11-12 06:45] LABS: HEMATOCRIT 36.5 % (36.0-47.0); MEAN CORPUSCULAR HEMOGLOBIN 29.4 pg (27.0-33.0); MEAN CORPUSCULAR HGB CONC 32.9 g/dl (32.0-36.5); MEAN CORPUSCULAR VOLUME 89.5 fl (80.0-96.0); PLATELET COUNT, AUTOMATED 329 10^3/uL (150-450); RED BLOOD COUNT 4.08 10^6/uL (4.00-5.40); WHITE BLOOD COUNT 6.1 10^3/uL (4.0-10.0)
[2023-11-12] MEDS: ceFAZolin SOD 2 GM in IV 1 EA IV ONE (07:35)
[2023-11-12] MEDS ORDERED: fentaNYL 100 MCG/2 ML INJECTION As Ordered ONE (07:51)
[2023-11-12] MEDS ORDERED: dexmedeTOMIDine (4MCG/ML)200MCG/50ML BTL (PRECEDEX) As Ordered ONE (07:51)
[2023-11-12] MEDS ORDERED: SUGAMMADEX SODIUM 500 MG/5 ML VIAL (BRIDION) As Ordered ONE (07:51)
[2023-11-12] MEDS ORDERED: ONDANSETRON 4MG 2ML VIAL As Ordered ONE (07:51)
[2023-11-12] MEDS ORDERED: GLYCOPYRROLATE INJ 0.2 MG/ML 2 ML VIAL As Ordered ONE (07:51)
[2023-11-12] MEDS ORDERED: ROCURONIUM BROMIDE 50MG/5ML VIAL As Ordered ONE (07:51)
[2023-11-12] MEDS ORDERED: propofoL 200 MG/20 ML VIAL As Ordered ONE (07:51)
[2023-11-12] MEDS ORDERED: LIDOCAINE 2% 100MG/5ML SDV (FOR ANES.) As Ordered ONE (07:51)
[2023-11-12] MEDS ORDERED: MIDAZOLAM INJ 2MG/2ML VIAL As Ordered ONE (07:51)
[2023-11-12] MEDS ORDERED: PHENYLephrine 500MCG 5ML (100MCG/ML) SYRINGE As Ordered ONE (07:58)
[2023-11-12] MEDS ORDERED: ACETAMINOPHEN 1000MG 100ML IV BAG As Ordered ONE (08:01)
[2023-11-12] MEDS ORDERED: HYDROmorphone HCL 2MG/ML 1ML VIAL As Ordered ONE (08:05)
[2023-11-12] MEDS ORDERED: PHENYLEPHRINE 10MG/ML 1ML VIAL As Ordered ONE (08:16)
[2023-11-12] MEDS: VASOPRESSIN INJ 20UNITS/ML 1ML VIAL As Ordered ONE (08:56)
[2023-11-12] MEDS: METHYLENE BLUE 0.5% (5MG/ML) 10 ML AMP (PROVAYBLUE) As Ordered ONE (10:26)
[2023-11-12] MEDS ORDERED: METOCLOPRAMIDE INJ 10MG/2ML VIAL IV PRN (10:35)
[2023-11-12] MEDS ORDERED: ONDANSETRON 4MG 2ML VIAL IV PRN (10:35)
[2023-11-12] MEDS ORDERED: HYDROMORPHONE HCL 0.5 MG/ 0.5 ML SYRINGE IV PRN (10:35)
[2023-11-12] MEDS: LR 1,000 ML IV SCH ×2 (10:40→10:59)
[2023-11-12] MEDS ORDERED: PROMETHAZINE 25MG/ML 1ML VIAL IV PRN (10:40)
[2023-11-12] MEDS ORDERED: PERCOCET 5MG/325MG TAB PO PRN ×2 (10:45)
[2023-11-12] MEDS ORDERED: MORPHINE 4 MG/ML 1ML VIAL IV PRN (10:45)
[2023-11-12] MEDS ORDERED: COLA100C5 PO (10:56)
[2023-11-12] MEDS ORDERED: PERCOCET PO (10:56)
[2023-11-12] MEDS ORDERED: IBUP80TA PO (10:56)
[2023-11-12] MEDS: KETOROLAC 30 MG/ML 1ML VIAL IV SCH (11:00)
[2023-11-12] MEDS: fentaNYL 100 MCG/2 ML INJECTION IV PRN (11:00)
[2023-11-12] MEDS: oxyCODONE 5MG TAB PO PRN (11:57)
[2023-11-12] MEDS: ONDANSETRON 4MG 2ML VIAL IV PRN (16:14)
[2023-11-12] MEDS: DOCUSATE SODIUM 100MG CAPSULE PO SCH (20:24)
[2023-11-13 02:00] VITALS: BP 118/64; TEMP 98.7; O2SAT 98
[2023-11-13 05:39] VITALS: BP 127/78; TEMP 98.7; O2SAT 97
[2023-11-13 05:54] LABS: BASO % 0.2 % (0.0-1.0); EOS % 0.2 % (0.0-3.0); HEMATOCRIT 33.3 % (36.0-47.0); LYMPH # 2.8 10^3/uL (1.5-5.0); LYMPH % 31.3 % (24.0-44.0); MEAN CORPUSCULAR HEMOGLOBIN 29.3 pg (27.0-33.0); MEAN CORPUSCULAR VOLUME 88.6 fl (80.0-96.0); MONO # 0.9 10^3/uL (0.0-0.8); MONO % 9.5 % (2.0-8.0); NEUTROPHILS # 5.3 10^3/uL (1.5-8.5); NEUTROPHILS % 58.6 % (36.0-66.0); PLATELET COUNT, AUTOMATED 293 10^3/uL (150-450); RED BLOOD COUNT 3.76 10^6/uL (4.00-5.40); WHITE BLOOD COUNT 9.1 10^3/uL (4.0-10.0)
[2023-11-13 10:00] VITALS: BP 138/63; TEMP 98.2; O2SAT 100
[2023-11-13] MEDS: IBUPROFEN 800 MG TAB PO SCH (14:16)
== END 2023-11-13 15:43 | disposition home or self-care (01) ==
LOC: M SDC 06:21 → M RR INP 06:22 → M OBS 12:37
PROVIDERS: ADMIT Obstetrics & Gynecology; ATTEND Obstetrics & Gynecology
DX: D25.1 Intramural leiomyoma of uterus (principal); D25.2 Subserosal leiomyoma of uterus; N93.8 Other specified abnormal uterine and vaginal bleeding; R10.2 Pelvic and perineal pain; G47.30 Sleep apnea, unspecified; K21.9 Gastro-esophageal reflux disease without esophagitis; D75.A Glucose-6-phosphate dehydrogenase (G6PD) deficiency without anemia; F41.9 Anxiety disorder, unspecified; F32.A Depression, unspecified; J45.909 Unspecified asthma, uncomplicated; Z88.2 Allergy status to sulfonamides; Z88.1 Allergy status to other antibiotic agents; Z88.8 Allergy status to other drugs, medicaments and biological substances; Z79.899 Other long term (current) drug therapy; Z79.51 Long term (current) use of inhaled steroids
CPT/HCPCS: 36415; 58545; 85025; 85027; 86850; 86900; 86901; 88305; 96374; 96375; 96376; G0378; J0131; J0665; J0690; J1100; J1170; J1885; J2250; J2371; J2405; J2598; J3010; S2900

== ENCOUNTER → 2024-09-26 | Outpatient (CLI) | payer OTHER ==
[~2024-09-26] MED LIST changes: +IBUP80TA PO; +PERCOCET PO
== END ==
LOC: M SLEEP 20:00
PROVIDERS: ATTEND Nurse Practitioner Family
DX: R06.83 Snoring (principal)

== ENCOUNTER → 2024-11-29 | Outpatient (CLI) | payer OTHER ==
[~2024-11-29] MED LIST changes: -ADV250INH INH; +ADVA1AER9 INH
== END ==
LOC: M WUC 12:47
PROVIDERS: ATTEND Nurse Practitioner Family
DX: K59.00 Constipation, unspecified (principal)

== ENCOUNTER 2024-12-17 18:58 | Emergency (ER) | payer OTHER ==
[~2024-12-17] VITALS: Ht 162.6 cm; Wt 87.6 kg
[~2024-12-17 18:58] MED LIST changes: -ADV500INH INH; +ADVA1AER10 INH
[2024-12-17] MEDS ORDERED: UBRO50TA PO (20:07)
[2024-12-17] MEDS ORDERED: MIRA3350 PO (20:07)
[2024-12-17] MEDS ORDERED: TIRZ5PEN3 SQ (20:07)
[2024-12-17] MEDS ORDERED: MAGN400T2 PO (20:07)
[2024-12-17] MEDS ORDERED: AMIT24CA7 PO (20:07)
[2024-12-17] MEDS: ACETAMINOPHEN 500 MG TAB PO ONE (21:57)
[2024-12-17] MEDS: KETOROLAC 60MG 2ML VIAL IM ONE (21:58)
[2024-12-17 22:35] VITALS: BP 114/63; TEMP 97.1; O2SAT 99
== END 2024-12-17 22:59 | disposition home or self-care (01) ==
LOC: M ED 18:58
DX: S09.90XA Unspecified injury of head, initial encounter (principal); V48.5XXA Car driver injured in noncollision transport accident in traffic accident, initial encounter; Y92.410 Unspecified street and highway as the place of occurrence of the external cause; Y93.89 Activity, other specified; Y99.9 Unspecified external cause status; G43.909 Migraine, unspecified, not intractable, without status migrainosus; Z88.2 Allergy status to sulfonamides; Z88.1 Allergy status to other antibiotic agents
CPT/HCPCS: 70450; 96372; 99283; J1885

== ENCOUNTER 2025-03-01 06:35 | Emergency (ER) | payer OTHER ==
[~2025-03-01] VITALS: Ht 162.6 cm; Wt 79.8 kg
[~2025-03-01 06:35] MED LIST changes: +LUBI24CA32 PO; +TIRZ5PEN3 SQ; +UBRO50TA PO
[2025-03-01 07:48] LABS: HEMATOCRIT 42.4 % (36.0-47.0); HEMOGLOBIN 14.5 g/dl (12.0-15.5); MEAN CORPUSCULAR HEMOGLOBIN 29.1 pg (27.0-33.0); MEAN CORPUSCULAR HGB CONC 34.2 g/dl (32.0-36.5); PLATELET COUNT, AUTOMATED 278 10^3/uL (150-450); RED BLOOD COUNT 4.99 10^6/uL (4.00-5.40); WHITE BLOOD COUNT 3.6 10^3/uL (4.0-10.0)
[2025-03-01 08:15] LABS: ATYPICAL LYMPH 8 % (0-5); EOSINOPHILS 1 % (0-3); LYMPHOCYTES 45 % (16-44); MONOCYTES 7 % (0-5); NEUTROPHILS 39 % (28-66); PLATELET ESTIMATE NORMAL (NORMAL)
[2025-03-01 08:16] LABS: HCG, SERUM QUALITATIVE NEGATIVE (NEGATIVE)
[2025-03-01 08:17] LABS: BLOOD UREA NITROGEN 16 MG/DL (9-23); CALCIUM LEVEL 8.9 MG/DL (8.5-10.1); CARBON DIOXIDE LEVEL 29 MMOL/L (20-31); CHLORIDE LEVEL 103 MMOL/L (98-107); CK-MB VALUE MASS < 1.0 NG/ML (<3.6); CREATININE FOR GFR 1.07 MG/DL (0.55-1.30); GLOMERULAR FILTRATION RATE > 60.0 (>60); GLUCOSE, FASTING 110 MG/DL (60-100); MAGNESIUM LEVEL 2.3 MG/DL (1.8-2.4); POTASSIUM SERUM 4.3 MMOL/L (3.5-5.1); SODIUM LEVEL 140 MMOL/L (136-145)
[2025-03-01 08:20] LABS: FREE T4 1.38 NG/DL (0.89-1.76); THYROID STIMULATING HORMONE 0.977 uIU/ML (0.55-4.78)
[2025-03-01 08:21] LABS: CPK CREATINE PHOSPHOKINASE 91 U/L (34-145); MB/CK RELATIVE INDEX 1.09 (< OR =4)
[2025-03-01 09:26] VITALS: TEMP 97
[2025-03-01] MEDS: NS (Normal Saline) 0.9% 1,000 ML IV ONE (10:45)
[2025-03-01] MEDS ORDERED: ISOVUE-370 76% 100ML VIAL As Ordered ONE (12:19)
[2025-03-01 13:00] VITALS: O2SAT 99
[2025-03-01 13:34] VITALS: BP 101/57
== END 2025-03-01 15:48 | disposition home or self-care (01) ==
LOC: M ED 06:35
DX: I95.1 Orthostatic hypotension (principal); I45.81 Long QT syndrome; Z88.1 Allergy status to other antibiotic agents; Z88.2 Allergy status to sulfonamides; Z91.018 Allergy to other foods; Z91.010 Allergy to peanuts; Z79.1 Long term (current) use of non-steroidal anti-inflammatories (NSAID); Z79.51 Long term (current) use of inhaled steroids; Z79.899 Other long term (current) drug therapy; Z79.810 Long term (current) use of selective estrogen receptor modulators (SERMs)
CPT/HCPCS: 71275; 80048; 82550; 82553; 83605; 83735; 84439; 84443; 84484; 84703; 85025; 93005; 93041; 96360; 96361; 99285; Q9967